=== PATIENT | male | born 1995 | race African-American/Black ===

== ENCOUNTER 2017-04-04 10:37 | Emergency (ER) | payer BC ==
[2017-04-04 10:47] VITALS: BP 118/59; PULSE 80; RESP 17; TEMP 97.3
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
== END 2017-04-04 11:45 | disposition home or self-care (01) ==
LOC: EC 10:37
DX: R55 Syncope and collapse (principal)
CPT/HCPCS: 99282

== ENCOUNTER 2017-05-04 11:42 | Emergency (ER) | payer BC ==
[2017-05-04 12:15] VITALS: BP 126/78; PULSE 72; RESP 20; TEMP 97.7
--- NOTE | 2017-05-04 12:46 | ED ---
General Adult HPI - General Chief complaint: Upper Respiratory Infection Stated complaint: work clearance Time Seen by Provider: 05/04/17 12:39 Source: patient, RN notes reviewed Mode of arrival: ambulatory - History of Present Illness Initial comments: 21-year-old male presents to the emergency department for work clearance. Patient states he was sick for about 3 days 5 days ago. Patient states he has felt back to normal past 2 days. Patient denies any fever, nausea, or vomiting when he was sick.. He had a cough and a sore throat. Patient states his symptoms have completely resolved. Patient states he does not want/need a workup at this time but just needs clearance to go back to work. Patient denies headaches, congestion, sore throat, cough, shortness of breath, chest pain, or abdominal pain at this time. 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 - Related Data Home Medications Medication Instructions Recorded Confirmed No Known Home Medications [No 05/04/17 05/04/17 Known Home Medications] Allergies Allergy/AdvReac Type Severity Reaction Status Date / Time No Known Allergies Allergy Verified 05/04/17 12:31 Review of Systems ROS Statement: Those systems with pertinent positive or pertinent negative responses have been documented in the HPI. ROS Other: All systems not noted in ROS Statement are negative. Past Medical History Past Medical History: No Reported History History of Any Multi-Drug Resistant Organisms: None Reported Past Surgical History: No Surgical Hx Reported Past Psychological History: No Psychological Hx Reported Smoking Status: Never smoker Past Alcohol Use History: None Reported Past Drug Use History: Marijuana General Exam Eye exam: Present: normal appearance, PERRL, EOMI. Absent: scleral icterus, conjunctival injection, periorbital swelling ENT exam: Present: normal exam, normal oropharynx, mucous membranes moist, TM's normal bilaterally Neck exam: Present: normal inspection. Absent: tenderness, meningismus, lymphadenopathy Respiratory exam: Present: normal lung sounds bilaterally. Absent: respiratory distress, wheezes, rales, rhonchi, stridor Cardiovascular Exam: Present: regular rate, normal rhythm, normal heart sounds. Absent: systolic murmur, diastolic murmur, rubs, gallop, clicks GI/Abdominal exam: Present: soft, normal bowel sounds. Absent: distended, tenderness, guarding, rebound, rigid Course Vital Signs 05/04/17 12:12 Temperature 97.7 F Pulse Rate 72 Respiratory 20 Rate Blood Pressure 126/78 O2 Sat by Pulse 99 Oximetry Medical Decision Making - Medical Decision Making 21-year-old male with no complaints today presents the emergency department for work clearance. Patient states he was sick with a cough and sore throat 5 days ago. He has felt much better the past 2 days and feels back to normal. Patient does not want a workup at this time as he feels completely better. Patient's vitals are all within normal limits: Temperature 97.7, pulse 72, respirations 20, blood pressure 126/78, pulse ox 99% on room air. Patient simply needs clearance to go back to work as required by his job. Patient works at a factory in [place]. Patient will be written a note clearing him to go back to work today. Disposition Clinical Impression: Normal exam Disposition: HOME SELF-CARE Condition: Good Additional Instructions: Please return to the emergency department if your symptoms return. Please follow up with primary care provider in one to 2 days. Referrals: None,Stated [Primary Care Provider] - 1-2 days Time of Disposition: 12:53
== END 2017-05-04 13:08 | disposition home or self-care (01) ==
LOC: EC 11:42
DX: J02.9 Acute pharyngitis, unspecified (principal); R05 Cough
CPT/HCPCS: 99282

== ENCOUNTER 2017-08-29 17:18 | Emergency (ER) | payer BC ==
[2017-08-29 17:25] VITALS: BP 112/77; PULSE 103; RESP 18; TEMP 98.6
[2017-08-29] MEDS ORDERED: DIPH,PERTUS(ACELL)TETVAC-LF 0.5 ML VIAL IM ONE (17:37)
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
--- NOTE | 2017-08-29 18:12 | XR ---
EXAMINATION TYPE: XR wrist complete RT DATE OF EXAM: 08/29/2017 COMPARISON: NONE HISTORY: Wrist pain TECHNIQUE: 4 views FINDINGS: I see no fracture nor dislocation. Joint spaces are normal. Carpal bones are intact. IMPRESSION: Normal right wrist.
== END 2017-08-29 18:25 | disposition home or self-care (01) ==
LOC: EC 17:18
DX: S60.211A Contusion of right wrist, initial encounter (principal); S60.511A Abrasion of right hand, initial encounter; F17.200 Nicotine dependence, unspecified, uncomplicated; Z23 Encounter for immunization; W22.8XXA Striking against or struck by other objects, initial encounter
CPT/HCPCS: 90471; 90715; 99283

== ENCOUNTER 2018-01-10 14:29 | Emergency (ER) | payer BC, OTHER ==
[2018-01-10 14:38] VITALS: BP 125/80; PULSE 82; RESP 18; TEMP 98.2
--- NOTE | 2018-01-10 15:01 | ED ---
Upper Extremity HPI - General Chief Complaint: Extremity Injury, Upper Stated Complaint: [facility] left arm injury Time Seen by Provider: 01/10/18 14:43 Source: patient, RN notes reviewed, old records reviewed Mode of arrival: ambulatory Limitations: no limitations - History of Present Illness Initial Comments: Patient is a 22-year-old male presents emergency department today after a fall from a truck Patient reports he is approximately 6 feet high. He reports that he fell onto his left wrist. He complains pain with range of motion of his wrist and hand. He denies any head neck or back injuries. Patient states that he has no shoulder pain, lower extremity pain or abdominal pain or chest pain. Patient states that his left arm and wrist broke his fall. Patient states that he's had no previous hand or wrist injuries. He is right-handed. - Related Data Previous Rx's Medication Instructions Recorded Ibuprofen 600 mg PO TID #20 tablet 01/10/18 Allergies Allergy/AdvReac Type Severity Reaction Status Date / Time No Known Allergies Allergy Verified 08/29/17 17:30 Review of Systems ROS Statement: Those systems with pertinent positive or pertinent negative responses have been documented in the HPI. ROS Other: All systems not noted in ROS Statement are negative. Past Medical History Past Medical History: No Reported History History of Any Multi-Drug Resistant Organisms: None Reported Past Surgical History: No Surgical Hx Reported Past Psychological History: No Psychological Hx Reported Smoking Status: Current every day smoker Past Alcohol Use History: None Reported Past Drug Use History: Marijuana General Exam - General Exam Comments Initial Comments: Well-appearing 22-year-old male. Alert and oriented 3. No acute distress. General: Well appearing, well nourished, in no distress. Oriented x 3, normal mood and affect . Ambulating without difficulty. Skin: Good turgor, no rash, unusual bruising or prominent lesions Hair: Normal texture and distribution. HEENT: Head: Normocephalic, atraumatic, no visible or palpable masses, depressions, or scaring. Eyes: Visual acuity intact, conjunctiva clear, sclera non-icteric, EOM intact, PERRL. Ears: EACs clear, TMs translucent & cone of light visualized. hearing intact. Nose: No external lesions, mucosa non-inflamed, septum and turbinates normal Mouth: Mucous membranes moist, no mucosal lesions. Teeth/Gums: No obvious caries or periodontal disease. No gingival inflammation or significant resorption. Pharynx: Mucosa non-inflamed, no tonsillar hypertrophy or exudate Neck: Supple, without lesions, bruits, or adenopathy, thyroid non-enlarged and non-tender Heart: No cardiomegaly or thrills; regular rate and rhythm, no murmur or gallop Lungs: Clear to auscultation and percussion Abdomen: Bowel sounds normal, no tenderness, organomegaly, masses, or hernia Back: Spine normal without deformity or tenderness, no CVA tenderness Extremities: No amputations or deformities, Patient has tenderness on palpation over the left dorsum of the wrist. Tenderness on Patient over the distal radius. Patient flexion and extension of the wrist. He has normal radial pulse. I refilled sensation in the fingers distally. Musculoskeletal: Normal gait and station. No misalignment, asymmetry, crepitation, defects, tenderness, masses, effusions, decreased range of motion, instability, atrophy or abnormal strength or tone in the head, neck, spine, ribs , pelvis or extremities. Neurologic: CN 2-12 normal. Sensation to pain, touch, and proprioception normal. DTRs normal in upper and lower extremities. No pathologic reflexes. Psychiatric: Oriented X3, intact recent and remote memory, judgment and insight , normal mood and affect. Limitations: no limitations Course Vital Signs 01/10/18 14:34 Temperature 98.2 F Pulse Rate 82 Respiratory 18 Rate Blood Pressure 125/80 O2 Sat by Pulse 100 Oximetry Medical Decision Making - Medical Decision Making Patient is a 22-year-old male who presents emergency department today with left wrist pain after a fall. He reports he thought the truck and landed on his left wrist. This time x-rays were negative for any acute process. He has normal range of motion in his fingers and hand. Patient has no other complaints from falls or injury. Work did call and wanted a urine drug screen and ETOH. Positive for marijuana. Patient given Orestes Wrap and will follow up with PCP and [facility]. Return to ED if any alarming signs or symptoms occur. Discussed return parameters. - Lab Data Lab Results 01/10/18 Range/Units 15:40 Urine Opiates Screen Not Detected (NotDetected) Ur Oxycodone Screen Not Detected (NotDetected) Urine Methadone Screen Not Detected (NotDetected) Ur Propoxyphene Screen Not Detected (NotDetected) Ur Barbiturates Screen Not Detected (NotDetected) U Tricyclic Antidepress Not Detected (NotDetected) Ur Phencyclidine Scrn Not Detected (NotDetected) Ur Amphetamines Screen Not Detected (NotDetected) U Methamphetamines Scrn Not Detected (NotDetected) U Benzodiazepines Scrn Not Detected (NotDetected) Urine Cocaine Screen Not Detected (NotDetected) U Marijuana (THC) Screen Detected H (NotDetected) - Radiology Data Radiology results: report reviewed Left wrist Xray is negative for acute process. Disposition Clinical Impression: Left wrist sprain Disposition: HOME SELF-CARE Condition: Good Instructions: Hand Sprain (ED), Wrist Injury (ED) Additional Instructions: Patient advised follow-up with primary care provider. Return to emergency department if any alarming signs or symptoms occur. Repopped orthopedic. Wear the Orestes wrap. Motrin Tylenol for pain. Prescriptions: Ibuprofen 600 mg PO TID #20 tablet Is patient prescribed a controlled substance at d/c from ED?: No Referrals: None,Stated [Primary Care Provider] - 1-2 days Waqar Restrepo MD [STAFF PHYSICIAN] - 1-2 days Time of Disposition: 16:28
--- NOTE | 2018-01-10 15:20 | XR ---
EXAMINATION TYPE: XR wrist complete LT DATE OF EXAM: 01/10/2018 CLINICAL HISTORY: pain TECHNIQUE: Frontal, lateral and oblique images of the left wrist are obtained. COMPARISON: None. FINDINGS: There is no acute fracture/dislocation evident. The joint spaces appear within normal marcus its. The overlying soft tissue appears unremarkable. IMPRESSION: There is no acute fracture or dislocation seen. ICD 10 NO FRACTURE, INITIAL EVALUATION
[2018-01-10 16:24] LABS: Amphetamine Screen,Urine Not Detected (NotDetected); Barbiturate Screen,Urine Not Detected (NotDetected); Benzodiazepines Screen,Urine Not Detected (NotDetected); Cocaine Screen,Urine Not Detected (NotDetected); Methadone Screen, Urine Not Detected (NotDetected); Opiate Screen,Urine Not Detected (NotDetected); Oxycodone Screen, Urine Not Detected (NotDetected); Phencyclidine Screen,Urine Not Detected (NotDetected); Tricyclic Antidepressant,Urine Not Detected (NotDetected); Urn Cannabinoid Scrn Detected (NotDetected)
== END 2018-01-10 16:39 | disposition home or self-care (01) ==
LOC: EC 14:29
DX: S63.502A Unspecified sprain of left wrist, initial encounter (principal); F17.200 Nicotine dependence, unspecified, uncomplicated; V68.9XXA Unspecified occupant of heavy transport vehicle injured in noncollision transport accident in traffic accident, initial encounter; Y93.89 Activity, other specified; Y92.69 Other specified industrial and construction area as the place of occurrence of the external cause; Y99.0 Civilian activity done for income or pay
CPT/HCPCS: 80306; 99284

== ENCOUNTER 2018-03-26 18:36 | Emergency (ER) | payer OTHER ==
[2018-03-26 18:48] VITALS: RESP 18
[2018-03-26] MEDS ORDERED: SULFAMETH-TMP DS STARTER PACK 2 TAB BTL PO STA (19:08)
[2018-03-26] MEDS ORDERED: IBUPROFEN 600 MG STARTER PACK 4 TAB BTL PO STA (19:09)
[2018-03-26] MEDS ORDERED: ACET/COD 300 MG/30 MG STARTER PACK 6 TAB BTL PO STA (19:09)
--- NOTE | 2018-03-26 19:25 | ED ---
Skin/Abscess/FB HPI - General Chief complaint: Skin/Abscess/Foreign Body Stated complaint: cyst on scrotum Time Seen by Provider: 03/26/18 18:40 Source: patient, EMS Mode of arrival: EMS Limitations: no limitations - History of Present Illness Initial comments: 22-year-old male patient presents to the emergency department today for evaluation of painful, draining, lump to the right scrotal region. Patient states that the area has been increasing in size since Tuesday. Patient states that today developed a "pimple" on the top that did rupture and he started having purulent bloody drainage from the area. Patient states the area is painful. Denies any fevers or chills with this. Denies any difficulty with urination. Denies any nausea or vomiting. Patient denies any recent rash, shortness breath, chest pain, abdominal pain, nausea, vomiting, diarrhea, constipation, back pain, numbness, tingling, dizziness, weakness, hematuria, dysuria, urinary urgency, urinary frequency, headache, visual changes, or any other complaints. - Related Data Previous Rx's Medication Instructions Recorded Ibuprofen [Motrin] 600 mg PO Q8HR PRN #30 tab 03/26/18 Sulfamethoxazole/Trimethoprim 1 each PO BID #20 tablet 03/26/18 [Bactrim DS 800-160 mg] Allergies Allergy/AdvReac Type Severity Reaction Status Date / Time No Known Allergies Allergy Verified 03/26/18 19:02 Review of Systems ROS Statement: Those systems with pertinent positive or pertinent negative responses have been documented in the HPI. ROS Other: All systems not noted in ROS Statement are negative. Past Medical History Past Medical History: No Reported History History of Any Multi-Drug Resistant Organisms: None Reported Past Surgical History: No Surgical Hx Reported Past Psychological History: No Psychological Hx Reported Smoking Status: Current every day smoker Past Alcohol Use History: None Reported Past Drug Use History: Marijuana General Exam Limitations: no limitations General appearance: alert, in no apparent distress, other (This is a well- developed, well-nourished adult male patient in no acute distress. Vital signs upon presentation shows temperature 97.9F, pulse 88, respirations 18, blood pressure 127/73, pulse ox 98% on room air.) Eye exam: Present: normal appearance, PERRL, EOMI. Absent: scleral icterus, conjunctival injection, periorbital swelling ENT exam: Present: normal exam, normal oropharynx, mucous membranes moist Respiratory exam: Present: normal lung sounds bilaterally. Absent: respiratory distress, wheezes, rales, rhonchi, stridor Cardiovascular Exam: Present: regular rate, normal rhythm, normal heart sounds. Absent: systolic murmur, diastolic murmur, rubs, gallop, clicks GI/Abdominal exam: Present: soft, normal bowel sounds. Absent: distended, tenderness, guarding, rebound, rigid exam: Present: testicular tenderness (Right), other (Patient has 1 cm x 2 cm area of swelling to the right scrotum, currently draining purulent bloody drainage. Consistent with abscess.). Absent: scrotal swelling Neurological exam: Present: alert, oriented X3, CN II-XII intact Psychiatric exam: Present: normal affect, normal mood Skin exam: Present: warm, dry, intact, normal color. Absent: rash Course Vital Signs 03/26/18 03/26/18 18:41 19:37 Temperature 97.9 F 98.3 F Pulse Rate 88 83 Respiratory 18 18 Rate Blood Pressure 127/73 121/73 O2 Sat by Pulse 98 98 Oximetry Medical Decision Making - Medical Decision Making 22-year-old male patient presented to the emergency department today for evaluation of swelling and drainage from a lesion to the right scrotum. Physical examination did reveal a 1 cm x 2 cm area of abscess to the right scrotum. This was currently draining purulent bloody drainage. Given that it is already draining is felt that incision is not needed at this time. We will start Bactrim. Patient is educated regarding warm compresses and warm sits baths. He is instructed to follow-up with urologist for further evaluation. Return parameters were discussed in detail. He verbalizes understanding and agrees with this plan. Disposition Clinical Impression: Scrotal abscess Disposition: HOME SELF-CARE Condition: Good Instructions (If sedation given, give patient instructions): Abscess (ED) Additional Instructions: Do warm compresses or warm baths 2-3 times daily. Take medications as directed. Follow-up with the urologist for further evaluation. Return to the emergency department for any new, worsening, or concerning symptoms. Prescriptions: Ibuprofen [Motrin] 600 mg PO Q8HR PRN #30 tab PRN Reason: Pain Sulfamethoxazole/Trimethoprim [Bactrim DS 800-160 mg] 1 each PO BID #20 tablet Is patient prescribed a controlled substance at d/c from ED?: No Referrals: Marcus Landeros MD [STAFF PHYSICIAN] - 1-2 days None,Stated [Primary Care Provider] - 1-2 days Time of Disposition: 19:25
[2018-03-26 19:38] VITALS: BP 121/73; PULSE 83; TEMP 98.3
== END 2018-03-26 19:38 | disposition home or self-care (01) ==
LOC: EC 18:36
DX: N49.2 Inflammatory disorders of scrotum (principal); F17.200 Nicotine dependence, unspecified, uncomplicated
CPT/HCPCS: 99283